=== PATIENT | female | born 1960 | race Caucasian/White ===

== ENCOUNTER 2018-08-15 18:14 | Emergency (ER) | payer BC ==
[~2018-08-15] VITALS: Ht 162.6 cm; Wt 90.7 kg
[~2018-08-15 18:14] MED LIST: ALBUTEROL S5 MG/1 ML INH; CHEWABLE MULTI1 EAC1 PO; PREMARIN42.5 GM VAGINAL; VITAMIN D5000 UNIT PO; WELLBUTRIN SR100 MG PO
[2018-08-15] MEDS ORDERED: CRESTOR5 MG PO (18:32)
[2018-08-15] MEDS ORDERED: METFORMIN HCL500 M1 PO (18:32)
[2018-08-15] MEDS ORDERED: KEFLEX500 MG PO (20:13)
[2018-08-15] MEDS ORDERED: PYRIDIUM200 MG PO (20:13)
== END 2018-08-15 20:26 | disposition home or self-care (01) ==
LOC: ED 18:14
DX: N30.91 Cystitis, unspecified with hematuria (principal); E11.9 Type 2 diabetes mellitus without complications; F32.9 Major depressive disorder, single episode, unspecified; Z87.891 Personal history of nicotine dependence; Z90.710 Acquired absence of both cervix and uterus; Z90.89 Acquired absence of other organs; Z88.5 Allergy status to narcotic agent; Z79.84 Long term (current) use of oral hypoglycemic drugs; Z79.899 Other long term (current) drug therapy
CPT/HCPCS: 80053; 81001; 85025; 85610; 96360; 99283-25; J7030

== ENCOUNTER 2021-09-27 06:25 | Day surgery (SDC) | payer BC ==
[~2021-09-27] VITALS: Ht 162.6 cm; Wt 98.2 kg
[~2021-09-27 06:25] MED LIST changes: +B COMPLEX1 EACH PO; +CRESTOR5 MG PO; +JANUMET XR 50-1 EAC1 PO; +KEFLEX500 MG PO; +METFORMIN HCL500 M1 PO; +OZEMPIC0.25 MG/0. SQ; +PYRIDIUM200 MG PO
--- NOTE | 2021-09-27 08:13 | NUR ---
09/27/21 0813 Odette Hollingsworth 0809- PT ARRIVES TO PACU REACTIVE TO VERBAL STIMULI. PT FALLS TO SLEEP INSTANTLY WHEN NOT BEING TALKED TO. RESP EVEN AND UNLABORED. OXYGEN SAT HIGH 90'S ON 3L VIA CO2 NC.
--- NOTE | 2021-09-28 07:46 | OR ---
[facility] [address], [place] [address] Signed DATE OF OPERATION: 09/27/2021 SURGEON: Markel Payan MD PREOPERATIVE DIAGNOSES: 1. Personal history of colonic polyps in 2015 at age 54. 2. Diverticulosis. POSTOPERATIVE DIAGNOSES: 1. Moderate sigmoid diverticulosis. 2. Tyfpigt-jn-azhxtphb internal hemorrhoids. 3. A 4 mm polyp at 45 cm. 4. A 5 mm periappendiceal/cecal polyp (#1). 5. A 4 mm cecal/base of ileocecal valve polyp (#2). 6. A 5 mm hepatic flexure polyp. 7. A 4 mm proximal transverse colon. 8. A 10 mm pedunculated polyp at 70 cm. 9. A 4 mm polyp at 10 cm. 10. A 3 mm polyp at 4 cm, completely ablated/cauterized. PROCEDURES: Colonoscopy with hot biopsy and snare polypectomy at 70 cm. ESTIMATED BLOOD LOSS: None. INDICATIONS: Maddie is a 61-year-old obese, diabetic female, asked to see me for followup colonoscopy. She had a negative colonoscopy at age 42 back in 2002 in [place], [place]. Apparently, she was having urinary issues after her hysterectomy at that time. I helped her with a colonoscopy in 2014 at age 54 for screening purposes. She had two small hyperplastic polyps removed and one adenomatous polyp removed, which was less than 5 mm in diameter. She had moderate diverticulosis. She had done well with Versed and fentanyl. We asked her to follow up in 5 years. She is adopted and has no knowledge of her family history. She currently has no lower GI complaints. In the office, I gave her a pamphlet on colonoscopy and we had reviewed the nature of that test. She understands there is risk including, but not limited to gas bloating, crampy abdominal pain, bleeding, perforation requiring surgery, and missed diagnosis. We also discussed the need for IV conscious sedation. She had expressed understanding and wished to proceed. Electronically Signed By: MARKEL PAYAN MD 09/28/21 0746 PATIENT NAME: MADDIE OVALLE OPERATIVE REPORT DATE OF : 62 REPORT #: [id number] PHYSICIAN: MARKEL PAYAN MD PCP: ODETTE VERDUGO REPORT IS CONFIDENTIAL AND NOT TO BE RELEASED WITHOUT AUTHORIZATION [facility] [address] [place] [id number] Signed DESCRIPTION OF PROCEDURE: Maddie was taken into our endoscopy suite and placed in the left lateral decubitus position. She was given IV sedation with Versed and fentanyl. A digital rectal exam was performed and this was unremarkable. There were no external hemorrhoids. She had good sphincter tone. There were no masses. The adult colonoscope was introduced, advanced all around into the cecum under direct visualization of camera without difficulty. It took just a little extra sedation and abdominal compression in order to advance the scope. Her prep was good. We could easily see the appendiceal orifice and ileocecal valve. The above-mentioned polyps were all removed with the help of a hot biopsy forceps. We did use the snare for the pedunculated polyp at 70 cm, that was captured through the scope. We used the cautery and obliterated the small 3 mm polyp just above the anal canal 4 cm. We noticed that she has moderate sigmoid diverticulosis. They were dyibldbc-hz-xtkd and moderate in number and scattered about. In the rectum, the scope was retroflexed and she does have eqlnjri-bc-wkusikzs internal hemorrhoid columns as well. After this, the gas was suctioned out, the colonoscope removed. Maddie tolerated the procedure quite well. RECOMMENDATIONS: I will see Maddie back in my office in 7 to 14 days to review her results. Markel Payan MD ALB/MODL /[id number] cc: Odette Verdugo Patient Chart Markel Payan MD Copies: ODETTE VERDUGO Electronically Signed By: MARKEL PAYAN MD 09/28/21 0746 PATIENT NAME: MADDIE OVALLE OPERATIVE REPORT DATE OF : 62 REPORT #: [id number] PHYSICIAN: MARKEL PAYAN MD PCP: ODETTE VERDUGO REPORT IS CONFIDENTIAL AND NOT TO BE RELEASED WITHOUT AUTHORIZATION [facility] [address] [place], [place] [address] Signed MARKEL PAYAN MD ~ Electronically Signed By: MARKEL PAYAN MD 09/28/21 0746 PATIENT NAME: MADDIE OVALLE OPERATIVE REPORT DATE OF : 62 REPORT #: [id number] PHYSICIAN: MARKEL PAYAN MD PCP: ODETTE VERDUGO REPORT IS CONFIDENTIAL AND NOT TO BE RELEASED WITHOUT AUTHORIZATION
== END 2021-09-27 08:50 | disposition home or self-care (01) ==
LOC: DS 06:25
PROVIDERS: ATTEND Colon & Rectal Surgery
PROC: 0DBL8ZX Excision of Transverse Colon, Via Natural or Artificial Opening Endoscopic, Diagnostic (ICD-10-PCS; 2021-09-27)
PROC: 0DBC8ZX Excision of Ileocecal Valve, Via Natural or Artificial Opening Endoscopic, Diagnostic (ICD-10-PCS; 2021-09-27)
PROC: 0DBH8ZX Excision of Cecum, Via Natural or Artificial Opening Endoscopic, Diagnostic (ICD-10-PCS; principal; 2021-09-27 07:30)
DX: D12.0 Benign neoplasm of cecum (principal); D12.3 Benign neoplasm of transverse colon; D12.6 Benign neoplasm of colon, unspecified; K57.30 Diverticulosis of large intestine without perforation or abscess without bleeding; K64.8 Other hemorrhoids; E66.9 Obesity, unspecified; Z20.822 Contact with and (suspected) exposure to COVID-19
CPT/HCPCS: 99153; G0500; J2250; J3010; J7121